=== PATIENT | female | born 1990 | race Caucasian/White ===

== ENCOUNTER 2017-12-03 21:27 | Emergency (ER) | payer BC ==
[2017-12-03] MEDS ORDERED: KETOROLAC 30 MG/ML INJ ONE (22:08)
--- NOTE | 2017-12-04 01:07 | ER ---
Nurse's Notes [facility] Name: Ibeth uQick Age: 27 yrs Sex: Female : 1990 Arrival Date: 12/03/2017 Time: 21:27 Bed 17 Private MD: Howard Alatorre T Diagnosis: LEG CRAMPS Presentation: 12/03 21:35 Presenting complaint: Patient states: pain and swelling in LLE for one day. Transition la1 of care: patient was not received from another setting of care. Onset of symptoms was December 03, 2017. Risk Assessment: Do you want to hurt yourself or someone else? Patient reports no desire to harm self or others. Initial Sepsis Screen: Does the patient meet any 2 criteria? No. Patient's initial sepsis screen is negative. Does the patient have a suspected source of infection? No. Patient's initial sepsis screen is negative. Care prior to arrival: None. 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 - Social history:: Smoking status: Patient/guardian denies using tobacco. - Ebola Screening: : No symptoms or risks identified at this time. Screenin:39 Abuse screen: Denies threats or abuse. Nutritional screening: No deficits noted. jd3 Tuberculosis screening: No symptoms or risk factors identified. Fall Risk IV access (20 points). Ambulatory Aid- None/Bed Rest/Nurse Assist (0 pts). Gait- Normal/Bed Rest/Wheelchair (0 pts) Mental Status- Oriented to own ability (0 pts). Total Ortiz Fall Scale indicates No Risk (0-24 pts). Assessment: 22:00 General: Appears in no apparent distress. uncomfortable, Behavior is calm, cooperative, jd3 appropriate for age. Pain: Complains of pain in left leg Quality of pain is described as aching, pressure. Neuro: Level of Consciousness is awake, alert, obeys commands, Oriented to person, place, time, situation, Appropriate for age. Cardiovascular: Capillary refill < 3 seconds Patient's skin is warm and dry. Respiratory: Airway is patent Respiratory effort is even, unlabored, Respiratory pattern is regular, symmetrical. GI: No signs and/or symptoms were reported involving the gastrointestinal system. Abdomen is flat, non-distended. : No signs and/or symptoms were reported regarding the genitourinary system. EENT: No signs and/or symptoms were reported regarding the EENT system. Derm: Skin is intact, Skin is dry, Skin is normal, Skin temperature is warm. Musculoskeletal: Circulation, motion, and sensation intact. Range of motion: intact in all extremities. 22:42 Reassessment: Patient appears in no apparent distress at this time. Patient and/or jd3 family updated on plan of care and expected duration. Pain level reassessed. Patient is alert, oriented x 3, equal unlabored respirations, skin warm/dry/pink. ultrasound at bedside. 12/04 00:49 Reassessment: Patient appears in no apparent distress at this time. Patient and/or jd3 family updated on plan of care and expected duration. Pain level reassessed. Patient is alert, oriented x 3, equal unlabored respirations, skin warm/dry/pink. 01:13 Reassessment: Patient appears in no apparent distress at this time. Patient and/or jd3 family updated on plan of care and expected duration. Pain level reassessed. Patient is alert, oriented x 3, equal unlabored respirations, skin warm/dry/pink. Vital Signs: 12/03 21:36 BP 98 / 68; Pulse 77; Resp 16; Temp 98.0; Pulse Ox 100% on R/A; Weight 50.8 kg; Height la1 5 ft. 2 in. (157.48 cm); 23:37 BP 98 / 70; Pulse 67; Resp 18; Pulse Ox 99% on R/A; ea 23:39 BP 98 / 70; Pulse 82; Resp 15 S; Pulse Ox 100% on R/A; jd3 12/04 00:49 BP 92 / 77; Pulse 78; Resp 16 S; Pulse Ox 100% on R/A; jd3 12/03 21:36 Body Mass Index 20.48 (50.80 kg, 157.48 cm) la1 ED Course: 12/03 21:27 Patient arrived in ED. ds1 21:28 Howard Alatorre MD is Private Physician. ds1 21:34 Rodrigo Chaudhari MD is Attending Physician. tw4 21:36 Triage completed. la1 21:37 Arm band placed on left wrist. la1 22:01 Min Caldera, RN is Primary Nurse. jd3 22:01 Inserted saline lock: 20 gauge in right antecubital area, using aseptic technique. 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 22:50 Ultrasound completed. Patient tolerated well. sg3 22:52 Lower Extremity Artery Uni [employer] US In Process Unspecified. EDMS 23:40 Patient has correct armband on for positive identification. Bed in low position. Call jd3 light in reach. Side rails up X 1. Adult w/ patient. 12/04 01:13 No provider procedures requiring assistance completed. IV discontinued. jd3 Administered Medications: 12/03 22:08 Drug: TORadol 30 mg Route: IVP; Site: right antecubital; jd3 12/04 01:15 Follow up: Response: No adverse reaction jd3 Outcome: 01:06 Discharge ordered by . tw4 01:14 Discharged to home ambulatory, with family. jd3 01:14 Condition: stable 01:14 Discharge instructions given to patient, family, Instructed on discharge instructions, follow up and referral plans. medication usage, Demonstrated understanding of instructions, follow-up care, medications, Prescriptions given X 2. 01:16 Patient left the ED. jd3 Signatures: Dispatcher [employer] EDOK Elizabeth Fofana ds1 Artie Mccann, RN Naima Marr, Min Childs RN, ea, Elana Nelson RN 3 Rodrigo Chaudhari MD MD tw4
--- NOTE | 2017-12-04 08:52 | RAD REPORT ---
EXAM DESCRIPTION: US - Lower Extremity Artery Uni Ltd - 12/03/2017 10:53 pm CLINICAL HISTORY: Left leg pain and swelling COMPARISON: None FINDINGS: The waveforms of the left common femoral, left superficial femoral, left popliteal, left p osterior tibial and left dorsalis pedis arteries are triphasic. An occlusion/stenosis is not seen IMPRESSION: Unremarkable exam
--- NOTE | 2017-12-05 01:16 | EDPHYS ---
Physician Documentation [facility] Name: Ibeth Quick Age: 27 yrs Sex: Female : 1990 Arrival Date: 12/03/2017 Time: 21:27 Bed 17 Private MD: Howard Alatorre T ED Physician Rodrigo Chaudhari HPI: 12/04 05:21 This 27 yrs old Female presents to ER via Ambulatory with complaints of Leg tw4 Pain. 05:21 The patient presents with pain, that is acute, swelling. The complaints affect the left tw4 quadriceps, left knee and left cadet. Context: The problem was sustained at home. Onset: The symptoms/episode began/occurred today. Modifying factors: The symptoms are alleviated by nothing. the symptoms are aggravated by nothing. Associated signs and symptoms: The patient has no apparent associated signs or symptoms. Severity of symptoms: At their worst the symptoms were moderate, in the emergency department the symptoms are unchanged. The patient has not experienced similar symptoms in the past. 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 - Social history:: Smoking status: Patient/guardian denies using tobacco. - Ebola Screening: : No symptoms or risks identified at this time. ROS: 12/04 05:21 Constitutional: Negative for fever, chills, and weight loss, Eyes: Negative for injury, tw4 pain, redness, and discharge, Cardiovascular: Negative for chest pain, palpitations, and edema, Respiratory: Negative for shortness of breath, cough, wheezing, and pleuritic chest pain, Abdomen/GI: Negative for abdominal pain, nausea, vomiting, diarrhea, and constipation, Back: Negative for injury and pain. MS/extremity: Positive for pain, Negative for acute changes, injury or acute deformity, abrasion, bite, contusion, decreased range of motion, puncture, rash. Exam: 05:21 Constitutional: This is a well developed, well nourished patient who is awake, alert, tw4 and in no acute distress. Head/Face: Normocephalic, atraumatic. Chest/axilla: Normal chest wall appearance and motion. Nontender with no deformity. No lesions are appreciated. Cardiovascular: Regular rate and rhythm with a normal S1 and S2. No gallops, murmurs, or rubs. Normal PMI, no JVD. No pulse deficits. Respiratory: Lungs have equal breath sounds bilaterally, clear to auscultation and percussion. No rales, rhonchi or wheezes noted. No increased work of breathing, no retractions or nasal flaring. Abdomen/GI: Soft, non-tender, with normal bowel sounds. No distension or tympany. No guarding or rebound. No evidence of tenderness throughout. 05:21 Musculoskeletal/extremity: Extremities: noted in the anterior aspect of left ankle: ecchymosis, noted in the left quadriceps, left knee, left cadet and anterior aspect of left ankle: swelling, ROM: no acute changes, Circulation is intact in all extremities. Sensation intact. Compartment Syndrome exam of affected extremity: is normal. no pain, with active ROM, no numbness, no tingling, no sensation deficit, no palor, no weak pulses, Joints: All joints appear normal with full range of motion. Weight bearing: able to fully bear weight, without difficulty. Vital Signs: 12/03 21:36 BP 98 / 68; Pulse 77; Resp 16; Temp 98.0; Pulse Ox 100% on R/A; Weight 50.8 kg; Height la1 5 ft. 2 in. (157.48 cm); 23:37 BP 98 / 70; Pulse 67; Resp 18; Pulse Ox 99% on R/A; ea 23:39 BP 98 / 70; Pulse 82; Resp 15 S; Pulse Ox 100% on R/A; jd3 12/04 00:49 BP 92 / 77; Pulse 78; Resp 16 S; Pulse Ox 100% on R/A; jd3 12/03 21:36 Body Mass Index 20.48 (50.80 kg, 157.48 cm) la1 MDM: 12/03 21:34 Patient medically screened. tw4 12/04 05:21 Differential diagnosis: contusion, abrasion, tendonitis, DVT. Data reviewed: vital tw4 signs, nurses notes. Counseling: I had a detailed discussion with the patient and/or guardian regarding: the historical points, exam findings, and any diagnostic results supporting the discharge/admit diagnosis. Special discussion: I discussed with the patient/guardian in detail that at this point there is no indication for admission to the hospital. It is understood, however, that if the symptoms persist or worsen the patient needs to return immediately for re-evaluation. 06:12 Data interpreted: monitoring analyst: rhythm is normal sinus rhythm, Pulse oximetry: tw4 Interpretation: normal. 12/03 22:05 Order name: Lower Extremity Artery Uni Ltd tw4 Administered Medications: 12/03 22:08 Drug: TORadol 30 mg Route: IVP; Site: right antecubital; jd3 12/04 01:15 Follow up: Response: No adverse reaction jd3 Disposition: 06:12 Chart complete. tw4 Disposition: 12/04/17 01:06 Discharged to Home. Impression: LEG CRAMPS. - Condition is Stable. - Discharge Instructions: Leg Cramps. - Prescriptions for Ibuprofen 600 mg Oral Tablet - take 1 tablet by ORAL route every 6 hours As needed take with food; 30 tablet. Tramadol 50 mg Oral Tablet - take 1 tablet by ORAL route every 8 hours as needed; 12 tablet. - Medication Reconciliation Form, Thank You Letter, Antibiotic Education, Prescription Opioid Use form. - Follow up: Private Physician; When: Upon discharge from the Emergency Department; Reason: Further diagnostic work-up, Recheck today's complaints, Re-evaluation by your physician. - Problem is new. - Symptoms are unchanged. Signatures: Dispatcher [employer] EDMS Artie Mccann RN RN Min Melchor RN RN jd3 Rodrigo Chaudhari MD MD tw4 Corrections: (The following items were deleted from the chart) 01:16 01:06 12/04/2017 01:06 Discharged to Home. Impression: LEG CRAMPS. Condition is Stable. jd3 Forms are Medication Reconciliation Form, Thank You Letter, Antibiotic Education, Prescription Opioid Use. Follow up: Private Physician; When: Upon discharge from the Emergency Department; Reason: Further diagnostic work-up, Recheck today's complaints, Re-evaluation by your physician. Problem is new. Symptoms are unchanged. tw4
== END 2017-12-04 01:16 | disposition home or self-care (01) ==
LOC: ER 21:27
DX: R25.2 Cramp and spasm (principal)
CPT/HCPCS: 93926; 96374; 99284